=== PATIENT | female | born 1995 | race Caucasian/White ===

== ENCOUNTER 2018-12-16 15:29 | Outpatient (REF) | payer BC, SELFPAY ==
[2018-12-20 14:31] LABS: Chlamydia Result Negative; GC Result Negative; Specimen Description CERVIX
== END 2018-12-16 15:49 ==
LOC: NCHCN 15:29
PROVIDERS: PCP Nurse Practitioner; Visit Provider Nurse Practitioner
DX: Z30.430 Encounter for insertion of intrauterine contraceptive device (principal); N94.6 Dysmenorrhea, unspecified; Z11.3 Encounter for screening for infections with a predominantly sexual mode of transmission
CPT/HCPCS: 87491; 87591

== ENCOUNTER 2019-02-16 16:11 | Outpatient (REF) | payer BC, SELFPAY ==
--- NOTE | 2019-02-16 15:20 | PAPFT_PTH ---
PATIENT: Jeni Christian LOC: [facility] U#:[id number] AGE/SX: 23/F ROOM: RE02/16/[address]: Doretha Moss : 1995 BED: DIS: 02/16/2019 SPEC #: [id number] RECD: 02/17/19 13:00 STATUS: JAMIE SCRUGGS #: [id number] REGINALDO: 02/16/19 15:[address]: Doretha Moss DEPT: [facility] Cytology RECD BY: Shreya Holt ENTERED: 02/17/19 13:00 SP TYPE: PAPFT OTHR DR: Kavita Crews Tissues: 1 - CX/ENDOCX FOR PAP SMEARS Procedures: PAP THIN PREP/[facility] Screening Comments: [id number]
== END 2019-02-16 16:31 ==
LOC: NCHCN 16:11
PROVIDERS: PCP Nurse Practitioner; Visit Provider Nurse Practitioner Family
DX: Z12.4 Encounter for screening for malignant neoplasm of cervix (principal)
CPT/HCPCS: 88142

== ENCOUNTER 2020-08-23 10:26 | Outpatient (REF) | payer BC, SELFPAY ==
--- NOTE | 2020-08-23 08:45 | PAPFT_PTH ---
PATIENT: Jeni Christian [facility] U#:[id number] AGE/SX: 25/F ROOM: RE08/23/[address]: Josette Mata : 1995 BED: DIS: 08/23/2020 SPEC #: [id number] RECD: 08/26/20 12:58 STATUS: JAMIE REQ #: [id number] REGINALDO: 08/23/20 08:[address]: Josette Mata DEPT: [facility] Cytology RECD BY: Shreya Holt ENTERED: 08/26/20 12:59 SP TYPE: PAPFT OTHR DR: Doretha Moss Tissues: 1 - CX/ENDOCX FOR PAP SMEARS Procedures: PAP THIN PREP/[facility] Screening Comments: [id number] (CHLAMYDIA/GC)
[2020-08-27 13:18] LABS: Chlamydia Result Negative (Negative); GC Result Negative (Negative)
== END 2020-08-23 10:46 ==
LOC: NCHCN 10:26
PROVIDERS: PCP Nurse Practitioner Family; Visit Provider Family Medicine
DX: Z11.3 Encounter for screening for infections with a predominantly sexual mode of transmission (principal); Z12.4 Encounter for screening for malignant neoplasm of cervix
CPT/HCPCS: 87491; 87591; 88142

== ENCOUNTER 2021-08-29 18:50 | Outpatient (REF) | payer BC, SELFPAY ==
[2021-08-31 15:26] LABS: COVID-19 RT-PCR UVMMC Result Negative (Negative)
== END 2021-08-29 18:51 | disposition home or self-care (01) ==
LOC: NCHCN 18:50
PROVIDERS: PCP Nurse Practitioner Family; Visit Provider Nurse Practitioner Family
DX: Z20.822 Contact with and (suspected) exposure to COVID-19 (principal)
CPT/HCPCS: U0003

== ENCOUNTER 2022-05-29 15:14 | Outpatient (REF) | payer BC, SELFPAY ==
[2022-05-31 14:11] LABS: HIV-1/2 Ag & Ab Screen Negative (Negative)
[2022-06-01 09:15] LABS: Hepatitis C Ab w Rflx HCV PCR Negative (Negative)
== END 2022-05-29 15:15 | disposition home or self-care (01) ==
LOC: NCHCN 15:14
PROVIDERS: PCP Nurse Practitioner Family; Visit Provider Nurse Practitioner Family
DX: Z11.4 Encounter for screening for human immunodeficiency virus [HIV] (principal); Z11.59 Encounter for screening for other viral diseases
CPT/HCPCS: 86803; 87389

== ENCOUNTER 2024-06-27 12:16 | Outpatient (REF) | payer BC, SELFPAY ==
--- NOTE | 2024-06-27 11:25 | PAPFT_PTH ---
PATIENT: Jeni Christian LOC: [facility] U#:[id number] AGE/SX: 29/F ROOM: RE06/27/[address]: Doretha Moss : 1995 BED: DIS: 06/27/2024 SPEC #: [id number] RECD: 06/27/24 18:00 STATUS: JAMIE RENichole #: [id number] REGINALDO: 06/27/24 11:[address]: Doretha Moss DEPT: [facility] Cytology RECD BY: Shreya Holt Tissues: 1 - CX/ENDOCX FOR PAP SMEARS Procedures: PAP THIN PREP/[facility] Screening HPV DNA PROBE Comments: [id number] (HPV 16 & 18/45) (CHLAMYDIA/GC)
[2024-06-27 15:03] LABS: HCT 44.1 % (36.0-46.0); HGB 14.6 g/dL (11.2-15.7); MCH 30.7 pg (27.0-33.0); MCHC 33.1 % (32.0-36.0); MCV 93 fL (80-95); MPV 10.5 fL (8.0-11.0); Platelet Count 308 10^3/uL (130-400); RBC 4.76 10^6/uL (3.93-5.22); RDW 12.3 % (11.7-14.6); RDW-SD 41.9 fL; WBC 6.18 10^3/uL (4.4-10.8)
[2024-06-27 15:16] LABS: ALT 25 U/L (14-59); AST 14 U/L (15-37); Albumin 4.2 g/dL (3.4-5.0); Alkaline Phosphatase 69 U/L (46-116); Anion Gap 7.7 mmol/L (3-11); BUN 11 mg/dL (7-18); Bilirubin, Total 0.91 mg/dL (0.2-1.0); CO2 28.3 mmol/L (21.0-32.0); CREATININE 0.9 mg/dL (0.55-1.02); Calcium 10.2 mg/dL (8.5-10.1); Calculated LDL 78 mg/dL (<100); Chloride 107 mmol/L (98-107); Cholesterol 156 mg/dL (<200); Estimated GFR 87.65 (mL/min/1.73m2); Glucose 84 mg/dL (74-106); HDL Cholesterol 67 mg/dL (40-60); Potassium 4.5 mmol/L (3.5-5.1); Sodium 143 mmol/L (136-145); Total Protein 7.9 g/dL (6.4-8.2); Triglyceride 57 mg/dL (<150)
[2024-06-28 13:11] LABS: Chlamydia Result Negative (Negative); GC Result Negative (Negative)
== END 2024-06-27 12:17 | disposition home or self-care (01) ==
LOC: NCHCN 12:16
PROVIDERS: PCP Nurse Practitioner Family; Visit Provider Nurse Practitioner Family
DX: Z00.00 Encounter for general adult medical examination without abnormal findings (principal)
CPT/HCPCS: 80053; 80061; 85027; 87491; 87591; 88142; 87624